=== PATIENT | female | born 1985 | race Caucasian/White ===

== ENCOUNTER 2019-01-01 16:59 | Emergency (ER) | payer MEDICAID ==
[2019-01-01] MEDS: KETOROLAC 30 MG INJ IM (18:22)
== END 2019-01-01 18:58 | disposition home or self-care (01) ==
LOC: FTE 16:59
DX: M79.602 Pain in left arm (principal)
CPT/HCPCS: 73090; 81025; 93005; 93971; 96372; 99285-25

== ENCOUNTER 2019-03-05 13:32 | Emergency (ER) | payer OTHER, MEDICAID | END 2019-03-05 13:50 | disposition home or self-care (01) | LOC: E/R 13:32 | DX: M79.602 Pain in left arm (principal) | CPT/HCPCS: 99282; Z7502 ==